=== PATIENT | female | born 1975 | race Caucasian/White ===

== ENCOUNTER → 2023-07-08 17:15 | Outpatient (REF) | payer BC, SELFPAY | LOC: WDC 17:15 | PROVIDERS: ATTENDING PHYSICIAN Obstetrics & Gynecology; FAMILY PHYSICIAN Family Medicine | DX: Z12.31 Encounter for screening mammogram for malignant neoplasm of breast (principal) | CPT/HCPCS: 77063; 77067 ==

== ENCOUNTER → 2023-07-16 07:05 | Outpatient (REF) | payer BC, SELFPAY ==
[2023-07-16 07:49] LABS: % Basophils 0.6 % (0-2); % Eosinophils 3.4 % (0-6); % Immature Granulocytes 0.2 % (0-0.5); % Lymphocytes 25.8 % (20.5-51.1); % Monocytes 13.7 % (1.7-9.3); % Neutrophils 56.3 % (42.2-75.2); Absolute Eosinophils 0.2 10^3/uL (0-0.7); Absolute Lymphocytes 1.2 10^3/uL (1.2-3.4); Absolute Monocytes 0.7 10^3/uL (0.1-0.6); Absolute Neutrophils 2.7 10^3/uL (1.4-6.5); Hematocrit 43.2 % (37.0-47.0); Hemoglobin 15.1 g/dL (12.0-16.0); Mean Corpuscular Hgb 34.5 pg (27.0-31.0); Mean Corpuscular Volume 98.6 fL (81.0-99.0); Mean Platelet Volume 10.3 fL (7.4-10.4); Nucleated Red Blood Cells % 0 %; Platelet Count 185 10^3/uL (130-400); Red Blood Cell Count 4.38 10^6/uL (4.20-5.40); Red Cell Dist. Width 11.9 % (11.5-14.5); White Blood Cell Count 4.8 10^3/uL (4.8-10.8)
[2023-07-16 08:17] LABS: ALT (SGPT) 25 U/L (0-35); AST (SGOT) 29 U/L (14-36); Albumin 4.8 g/dl (3.5-5.0); Alkaline Phosphatase 35 U/L (38-126); Blood Urea Nitrogen 21 mg/dl (7-17); Calcium 10.3 mg/dl (8.4-10.2); Carbon Dioxide 26 mmol/L (22-30); Chloride 98 mmol/L (98-107); Glucose 106 mg/dl (70-99); HDL Cholesterol 108 mg/dl; LDL Cholesterol, Calculated 122 mg/dl; Potassium 4.4 mmol/L (3.5-5.1); Sodium 134 mmol/L (135-145); Total Bilirubin 0.7 mg/dl (0.2-1.3); Total Cholesterol 250 mg/dl (50-199); Total Protein 7.9 g/dl (6.3-8.2); Triglyceride 102 mg/dl (10-149); Very Low Density Lipoprotein 20 mg/dl (0-30); eGFR > 60.00
[2023-07-16 08:24] LABS: ALT (SGPT) 26 U/L (0-35); AST (SGOT) 31 U/L (14-36)
[2023-07-16 08:33] LABS: Free T3 4.73 pg/ml (2.77-5.27); Free T4 1.21 ng/dl (0.78-2.19)
[2023-07-16 08:47] LABS: TSH 2.52 uIU/ml (0.47-4.68); TSH Reflex To Free T4 2.52 uIU/ml (0.47-4.68)
[2023-07-16 09:06] LABS: Vitamin B12 667 pg/ml (239-931)
== END ==
LOC: REG 07:05
PROVIDERS: ATTENDING PHYSICIAN Internal Medicine Endocrinology, Diabetes & Metabolism; FAMILY PHYSICIAN Family Medicine
DX: Z00.00 Encounter for general adult medical examination without abnormal findings (principal); E53.8 Deficiency of other specified B group vitamins; E05.90 Thyrotoxicosis, unspecified without thyrotoxic crisis or storm; L65.9 Nonscarring hair loss, unspecified
CPT/HCPCS: 36415; 80053; 80061; 82607; 84439; 84443; 84450; 84460; 84481; 85025

== ENCOUNTER → 2024-04-28 08:23 | Outpatient (REF) | payer BC, SELFPAY | LOC: WDC 08:23 | PROVIDERS: ATTENDING PHYSICIAN Nurse Practitioner Family; FAMILY PHYSICIAN Family Medicine | DX: N64.4 Mastodynia (principal) | CPT/HCPCS: 76642 ==

== ENCOUNTER 2024-06-09 13:24 | Emergency (ER) | payer BC, SELFPAY ==
[2024-06-09 13:31] VITALS: BP 177/106
--- NOTE | 2024-06-09 16:41 | ED.GENMED ---
History of Present Illness
General
Chief Complaint: Swallowing Problem
Source: patient
Exam Limitations: none
Time Seen by Provider: 06/09/24 15:57
Nursing documentation reviewed up to this point in time: agreed with
History of Present Illness
History of Present Illness:
48 yo female with no significant past medical history, recently treated for sinus infection with Augmentin, she swallowed a whole pill today about 4 hours ago when usually she cuts it in half, she feels that it is stuck in her throat.
She has been able to swallow her own saliva, eat and drink but feels swelling/FB sensation
Past History
Past History
ED Past Medical History: Other (IBS)
ED Past Surgical History: None
Social History
Tobacco: Non-smoker
Alcohol: Occasional
Personal: Single
Employment: Employed
Review of Systems
Review of Systems
Allergies reviewed?: Yes
All Other Systems: ROS reviewed and negative except as documented in HPI and ROS
EENT: Reports other (Foreign body sensation throat)
Respiratory: Reports no symptoms
Cardiac: Denies chest pain
Phy Exam
Physical Exam
Physical Exam:
GENERAL: No acute distress. A&Ox3.
CONSTITUTIONAL: Afebrile.
EYES: clear, conjunctivae normal
ENMT: moist mucus membranes, Pharynx nl. Speaking and swallowing well
RESPIRATORY: Regular respirations, nonlabored, lungs clear.
CARDIOVASCULAR: Regular rate and rhythm, no murmurs, no rubs.
MUSCULOSKELETAL: Moves with ease. Well perfused.
SKIN: Warm, dry, pink
PSYCH: Normal mood and affect. Well kept, interactive and appropriate
NEUROLOGIC: Awake, alert and oriented. No focal neurological deficits
Course
Orders/Labs/Results
Orders:
Orders
06/09/24 15:56
Neck Soft Tissue [CR Soft Tissue Neck ] Urgent
Comment:
Reason For Exam: pill may be stuck
Vital Signs
Initial and Last Documented VS:
Initial Vital Signs
Temp Pulse Resp BP Pulse Ox
97.9 F 99 16 177/106 99
06/09/24 13:31 06/09/24 13:31 06/09/24 13:31 06/09/24 13:31 06/09/24 13:31
Last Documented Vital Signs
Temp Pulse Resp BP Pulse Ox
97.9 F 89 18 160/90 99
06/09/24 13:31 06/09/24 17:28 06/09/24 17:28 06/09/24 17:28 06/09/24 17:28
MDM/Problems Addressed
Differential Diagnosis Includes:
FB throat, Globus
MDM/Problems Addressed:
48 yo female with no significant past medical history, recently treated for sinus infection with Augmentin, she swallowed a whole pill today about 4 hours ago when usually she cuts it in half, she feels that it is stuck in her throat.
She has been able to swallow her own saliva, eat and drink but feels swelling/FB sensation
Soft tissue lateral neck x-ray radiology report read: IMPRESSION:
1. No radiographic evidence for obstruction of the upper aerodigestive tract.
2. No radiographic evidence for swallowed radiopaque foreign body.
Patient reassured
*Critical Care Note
Total Time (30-74mins, 75-104mins- exclusive of procedures): Not Applicable
ED Attending Note
-
Portions of this chart may have been created with voice recognition software.� Occasional wrong word or��sound alike� substitutions may have occurred due to the inherent limitations of voice recognition software.
Discharge Plan
Departure
Patient Disposition: Home (Routine Discharge)
Date of Disposition: 06/09/24
Time of Disposition: 17:15
Patient with high blood pressure during this ER visit?: Yes
Condition: Good
Discharge Problem:
Foreign body sensation in throat
Instructions: Dysphagia
Prescriptions:
No Action
dicyclomine 10 MG capsule
10 mg PO QIDPRN PRN (Reason: abdominal discomfort) Qty: 30 0RF
Referrals:
Sarkis King Jr., DO [Family Provider] -
Andrez Jon MD [Active] - As needed
Activity Restrictions/Additional Instructions:
As we discussed, your xray shows nothing stuck in the throat, no foreign body, no significant swelling.
the foreign body sensation you are feeling in your throat is most likely from soft tissue swelling from the trauma done when the large pill scraped against the esophagus guzman
Sucking on ice can help reduce the swelling
Cepacol lozenges may also help
You should be 100% better within the next 12 to 24 hours.
Return here immediately for inability to swallow your own saliva, increasing pain or swelling or feeling worse in any way.
See the ENT Dr. Jon on Wednesday or Wednesday if you are not 100% better by thenSee the ENT Dr. Evans on Wednesday or Wednesday if you are not 100% better by then
Interventions
Interventions:
*Risk Screen - Suicide Last Done: 06/09/24 13:31
*General Assessment Last Done: 06/09/24 13:31
*Neglect/Abuse Screening Last Done: 06/09/24 13:31
*ED COVID-19 Vaccine History Last Done: 06/09/24 13:31
*Nursing Disposition Last Done: 06/09/24 17:28
ED-EENT Assessment Last Done: 06/09/24 13:44
DS-Oglqzl-Mkqhglhxee Assessment Last Done: 06/09/24 13:44
ED- Pulmonary Assessment Last Done: 06/09/24 13:44
ED- Neurological Assessment Last Done: 06/09/24 13:44
Discharge Date and Time
Discharge Date/Time: 06/09/24 17:29
Print Language: VENEZUELAN
[2024-06-09 17:02] VITALS: BP 163/96
[2024-06-09 17:28] VITALS: BP 160/90
== END 2024-06-09 17:29 | disposition home or self-care (01) ==
LOC: EMR 13:24
PROVIDERS: EMERGENCY PHYSICIAN Emergency Medicine; FAMILY PHYSICIAN Family Medicine
DX: R09.A2 Foreign body sensation, throat (principal)
CPT/HCPCS: 99283; 70360

== ENCOUNTER → 2024-07-25 13:52 | Outpatient (REF) | payer BC, SELFPAY | LOC: WDC 13:52 | PROVIDERS: ATTENDING PHYSICIAN Obstetrics & Gynecology; FAMILY PHYSICIAN Family Medicine | DX: Z12.31 Encounter for screening mammogram for malignant neoplasm of breast (principal) | CPT/HCPCS: 77063; 77067 ==

== ENCOUNTER → 2024-08-02 07:06 | Outpatient (REF) | payer BC, SELFPAY ==
[2024-08-02 09:56] LABS: ALT (SGPT) 43 U/L (0-35); AST (SGOT) 46 U/L (14-36)
[2024-08-02 17:24] LABS: Free T3 4.64 pg/ml (2.77-5.27)
[2024-08-02 17:38] LABS: TSH Reflex To Free T4 2.15 uIU/ml (0.47-4.68)
== END ==
LOC: REG 07:06
PROVIDERS: ATTENDING PHYSICIAN Internal Medicine Endocrinology, Diabetes & Metabolism; FAMILY PHYSICIAN Family Medicine
DX: E05.90 Thyrotoxicosis, unspecified without thyrotoxic crisis or storm (principal); L65.9 Nonscarring hair loss, unspecified
CPT/HCPCS: 36415; 84443; 84450; 84460; 84481

== ENCOUNTER 2024-10-29 08:29 | Emergency (ER) | payer BC, SELFPAY ==
[2024-10-29 08:31] VITALS: BP 164/96
--- NOTE | 2024-10-29 09:40 | ED.GENMED ---
History of Present Illness
General
Chief Complaint: Abdominal Pain
Source: patient and previous radiology exam
Exam Limitations: none
Time Seen by Provider: 10/29/24 09:28
Nursing documentation reviewed up to this point in time: agreed with
History of Present Illness
History of Present Illness:
49-year-old female hypothyroid presents with abdominal cramping and bloating for about 2 weeks decreased p.o. 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
seen here about 6 years ago with a similar episode had a CAT scan, has seen GI told she was diverticulosis, never had diverticulitis,
Past History
Past History
ED Past Medical History: Hypothyroidism and Other (IBS)
ED Past Surgical History: None
Social History
Tobacco: Non-smoker
Alcohol: Occasional
Personal: Single
Living: with family
Employment: Employed
Review of Systems
Review of Systems
All Other Systems: Not applicable
Constitutional: Reports fatigue; Denies fever
EENT: Reports no symptoms
Respiratory: Reports no symptoms
Cardiac: Reports no symptoms
ABD/GI: Reports abdominal pain, diarrhea and anorexia; Denies nausea
: Reports no symptoms
Musculoskeletal: Reports no symptoms
Skin: Reports no symptoms
Neurological: Reports no symptoms
Phy Exam
Physical Exam
Physical Exam:
Physical Exam
General: no apparent distress, not acutely ill
Neck: No jaundice
Heart: s1/s2 regular rate and rhythm, no murmur. equal radial pulses.
Lungs: no acute respiratory distress. clear bilaterally
Abdomen: Mild diffuse tenderness no guarding or rebound
Neuro: alert and oriented. no focal neurological deficits
Skin: no rash
Psychiatric: well kept. interactive and cooperative
Extremities: no edema.
Course
Orders/Labs/Results
Orders:
Orders
10/29/24 09:34
IV Insert/Care/Rem.- Treatment PRN
Urinalysis Reflex To Culture Urgent
0.9% Sodium Chloride 1000 ml [Nss] 1,000 ml IV BOLUS
10/29/24 09:35
Electrocardiogram (*1) Stat
Reason for Study: Abdominal Pain
CT Abd/Pel (IV only)-DH only Urgent
Comment:
Reason For Exam: pain
EKG- Treatment ONCE
Dicyclomine [Bentyl] 20 mg PO NOW STA
Ketorolac [Toradol] 30 mg IV NOW STA
Test Result ONCE
US Abdomen Complete/Upper Urgent
Comment:
Reason For Exam: pian
10/29/24 10:06
CRP [C-Reactive Protein] Urgent
Complete Blood Count/With Diff Urgent
Comprehensive Metabolic Panel Urgent
ESR [Erythrocyte Sed Rate] Urgent
HCG, Serum Qualitative Screen Urgent
Lipase Urgent
Troponin I Urgent
Abnormal Lab Results
10/29/24
10:06
RBC 4.06 L 10^6/uL
(4.20-5.40)
MCH 34.5 H pg
(27.0-31.0)
Absolute Lymphs (auto) 1.0 L 10^3/uL
(1.2-3.4)
Lymphocytes % 19.5 L %
(20.5-51.1)
Monocytes % 11.1 H %
(1.7-9.3)
Glucose 104 H mg/dl
(70-99)
Alkaline Phosphatase 29 L U/L
(38-126)
10/29/24 10:06
10/29/24 10:06
Vital Signs
Initial and Last Documented VS:
Initial Vital Signs
Temp Pulse Resp BP Pulse Ox
98.2 F 97 18 164/96 98
10/29/24 08:31 10/29/24 08:31 10/29/24 08:31 10/29/24 08:31 10/29/24 08:31
Last Documented Vital Signs
Temp Pulse Resp BP Pulse Ox
98 F 79 16 155/89 100
10/29/24 10:18 10/29/24 10:18 10/29/24 10:18 10/29/24 10:18 10/29/24 10:18
MDM/Problems Addressed
Differential Diagnosis Includes:
IBS colitis diverticulitis biliary colic pancreatitis doubt ACS
MDM/Problems Addressed:
Abdominal
Chronic conditions affecting care:
IBS diverticulosis
Acute Exacerbation and/or Progression of Chronic Illness:
IBS
*Radiology
Radiology exam reviewed: radiology read reviewed
*Pulse Oximetry
SaO2: 98
Oxygen Mode of Delivery: Room air
Patient hypoxic: no
*EKG
Interpreted by ED Provider?: Yes
Interpretation: normal
Comparison EKG: no comparison EKG present
Heart Rate: 78
Rate: normal
Rhythm: sinus
Ischemia: no ischemia
*Consulting Solution Manager Interpretation
Rate: normal
Interpretation: normal
Heart Rate: 78
*Critical Care Note
Total Time (30-74mins, 75-104mins- exclusive of procedures): Not Applicable
Update Note
Update Note:
1:[address] ultrasound noted patient feeling better
ED Attending Note
-
Portions of this chart may have been created with voice recognition software.� Occasional wrong word or��sound alike� substitutions may have occurred due to the inherent limitations of voice recognition software.
Discharge Plan
Departure
Patient Disposition: Home (Routine Discharge)
Date of Disposition: 10/29/24
Time of Disposition: 13:20
Patient with high blood pressure during this ER visit?: No
Condition: Good
Discharge Problem:
Abdominal pain
Instructions: Abdominal Pain
Prescriptions:
New
dicyclomine 20 mg tablet
20 mg PO QID PRN (Reason: abdominal cramps) Qty: 20 0RF
No Action
dicyclomine 10 MG capsule
10 mg PO QIDPRN PRN (Reason: abdominal discomfort) Qty: 30 0RF
Referrals:
Sarkis King Jr., DO [Family Provider, Internal Medicine] - Next open appointment
Interventions
Interventions:
*Risk Screen - Suicide Last Done: 10/29/24 08:31
*General Assessment Last Done: 10/29/24 08:31
*Neglect/Abuse Screening Last Done: 10/29/24 08:31
*ED- Fall Risk Assessment Last Done: 10/29/24 10:19
*ED COVID-19 Vaccine History Last Done: 10/29/24 10:19
NQ-Qqjxdh-Dozrplzmza Assessment Last Done: 10/29/24 10:30
Discharge Date and Time
Print Language: SAMI
[2024-10-29] MEDS: NSS 1000 IV (10:03)
[2024-10-29] MEDS: BENTYL 20 MG PO (10:04)
[2024-10-29] MEDS: TORADOL 30 MG IV (10:04)
[2024-10-29 10:18] VITALS: BP 155/89; BMI 21.2
[2024-10-29 10:27] LABS: Hematocrit 40.2 % (37.0-47.0); Hemoglobin 14.0 g/dL (12.0-16.0); Mean Corp Hgb Conc. 34.8 g/dL (33.0-37.0); Mean Corpuscular Volume 99.0 fL (81.0-99.0); Nucleated Red Blood Cells % 0 %; Platelet Count 212 10^3/uL (130-400); Red Cell Dist. Width 12.6 % (11.5-14.5)
[2024-10-29 10:51] LABS: C-Reactive Protein < 5.00 mg/L (0.0-10.00); HCG, Serum Qualitative Screen Negative
[2024-10-29 10:53] LABS: ALT (SGPT) 16 U/L (0-35); AST (SGOT) 21 U/L (14-36); Albumin 4.4 g/dl (3.5-5.0); Alkaline Phosphatase 29 U/L (38-126); Blood Urea Nitrogen 13 mg/dl (7-17); Calcium 9.6 mg/dl (8.4-10.2); Carbon Dioxide 24 mmol/L (22-30); Chloride 105 mmol/L (98-107); Estimated Creatinine Clearance 104 ml/min; Glucose 104 mg/dl (70-99); Lipase 94 U/L (23-300); Potassium 3.8 mmol/L (3.5-5.1); Sodium 136 mmol/L (135-145); Total Protein 7.5 g/dl (6.3-8.2); eGFR > 60.00
[2024-10-29 11:00] LABS: Troponin I < 0.012 ng/ml
[2024-10-29 13:54] LABS: Urine Character Clear (Clear)
== END 2024-10-29 13:52 | disposition home or self-care (01) ==
LOC: EMR 08:29
PROVIDERS: EMERGENCY PHYSICIAN Emergency Medicine; FAMILY PHYSICIAN Family Medicine
DX: R10.9 Unspecified abdominal pain (principal); E03.9 Hypothyroidism, unspecified; K58.9 Irritable bowel syndrome, unspecified
CPT/HCPCS: 99284; 96374; 96361; 74177; 76700; 80053; 81003; 83690; 84484; 84703; 85025; 85652; 86140; 93005; Q9967